=== PATIENT | male | born 1940 | race African-American/Black ===

== ENCOUNTER 2018-02-28 15:32 | Inpatient (IN) | payer OTHER, BC ==
[~2018-02-28] VITALS: Ht 175.3 cm; Wt 79.6 kg
[2018-02-28 17:05] LABS: BASOPHIL (%) 0.6 % (0-1); EOSINOPHIL (%) 0.8 % (0-5); HEMATOCRIT 44.2 % (38.0-50.0); HEMOGLOBIN 14.5 G/DL (12.5-16.6); IMMATURE GRANULOCYTE (%) 0.2 % (0.0-0.7); LYMPHOCYTE (%) 29.8 % (15-42); LYMPHOCYTE COUNT 1.5 K/uL (1.0-2.8); MCH 29.7 PG (29.0-34.0); MCHC 32.8 G/DL (30.0-36.0); MCV 90.4 FL (86-99); MONOCYTE (%) 12.6 % (3-12); MONOCYTE COUNT 0.6 K/uL (0-0.8); NEUTROPHIL COUNT 2.8 K/uL (1.8-6.4); PLATELET COUNT 235 K/uL (156-360); RBC DIS.WIDTH-CV 11.9 % (11.8-14.6); RBC DIS.WIDTH-SD 39.1 % (39-53); RED BLOOD COUNT 4.89 M/uL (4.00-5.50); WHITE BLOOD COUNT 4.9 K/uL (4.1-10.2)
[2018-02-28 17:16] LABS: CHLORIDE 107 mEq/L (99-109); POTASSIUM 4.1 mEq/L (3.7-5.4); SODIUM 137 mEq/L (136-147)
[2018-02-28 17:18] LABS: GLUCOSE 122 mg/dL (70-99)
[2018-02-28 17:22] LABS: CREATININE 1.8 mg/dL (0.6-1.3); GFR ESTIMATE (CALCULATED) 47 mL/min/ (58.99-99999)
[2018-02-28 17:23] LABS: UREA NITROGEN (BUN) 21 mg/dL (9-23)
[2018-02-28 17:24] LABS: CREATINE KINASE 83 IU/L (1-294); TOTAL CK 83 IU/L (1-294)
[2018-02-28 17:31] LABS: TROP-I INTERPRETATION NEGATIVE; TROPONIN-I < 0.01 ng/mL (0.0-0.30)
[2018-02-28 17:32] LABS: CK-MB 1.4 ng/mL (0.0-4.9); CKMB RELATIVE INDEX 1.7 (0.0-3.9)
[2018-02-28] MEDS ORDERED: AMLODIPINE BESY10 MG PO (19:11)
[2018-02-28] MEDS ORDERED: JANUVIA25 M1 PO (19:12)
[2018-02-28] MEDS ORDERED: ATORVASTATIN CA80 MG PO (19:12)
[2018-02-28 21:58] VITALS: BP 191/93
[2018-02-28 23:00] LABS: HDL CHOLESTEROL 33 MG/DL (Desirable>=40); LDL CHOLESTEROL 192 mg/dL (Desirable<100); NON-HDL CHOLESTEROL 218 mg/dL (Desirable<160); TOTAL CHOLESTEROL 251 mg/dL (Desirable<200); TRIGLYCERIDES 131 MG/DL (Normal: <150)
[2018-02-28 23:03] LABS: TROP-I INTERPRETATION NEGATIVE; TROPONIN-I < 0.01 ng/mL (0.0-0.30)
[2018-03-01 04:29] VITALS: BP 157/72
[2018-03-01 05:50] LABS: TROP-I INTERPRETATION NEGATIVE; TROPONIN-I < 0.01 ng/mL (0.0-0.30)
[2018-03-01 06:04] LABS: CHLORIDE 105 MEQ/L (99-109); CREATININE 1.5 MG/DL (0.6-1.3); GFR ESTIMATE (CALCULATED) 58 mL/min/ (58.99-99999); GLUCOSE 128 mg/dL (70-99); POTASSIUM 3.7 MEQ/L (3.7-5.4); SODIUM 140 MEQ/L (136-147); UREA NITROGEN (BUN) 19 mg/dL (9-23)
[2018-03-01 07:26] VITALS: BP 185/82
[2018-03-01 08:57] LABS: HEMOGLOBIN A1c (GLYCOHEMOGLOB) 7.3 % (Below 5.7)
[2018-03-01 11:07] VITALS: BP 170/76
[2018-03-01 14:48] VITALS: BP 181/91
[2018-03-01 15:42] VITALS: BP 157/81
[2018-03-01 20:18] VITALS: BP 172/89
[2018-03-02 00:01] VITALS: BP 163/79
[2018-03-02 04:18] VITALS: BP 174/82
[2018-03-02 08:25] VITALS: BP 131/75
[2018-03-02 11:48] VITALS: BP 137/72; BP 149/66
[2018-03-02 16:00] VITALS: BP 117/59
[2018-03-02] MEDS ORDERED: AMLODIPINE BESY10 MG PO (16:13)
[2018-03-02] MEDS ORDERED: JANUVIA25 M1 PO (16:13)
[2018-03-02] MEDS ORDERED: ASPIRIN EC325 MG PO (16:13)
[2018-03-02] MEDS ORDERED: ATORVASTATIN CA80 MG PO (16:13)
== END 2018-03-02 18:31 | disposition home or self-care (01) | DRG 65 ==
LOC: EME 15:32 → EDOF 20:38 → 4SOUTH 20:38 → ENRESERV 20:39 → 4SOUTH 21:47 → ENRESERV 03-02 08:35 → CANRESERV 03-02 09:14 → ENRESERV 03-02 09:14 → 4SOUTH 03-02 18:31
PROVIDERS: Hospitalist; Physician Assistant
DX: I63.131 Cerebral infarction due to embolism of right carotid artery (principal); R47.81 Slurred speech; T67.5XXA Heat exhaustion, unspecified, initial encounter; T67.0XXA Heatstroke and sunstroke, initial encounter; X30.XXXA Exposure to excessive natural heat, initial encounter; Z91.14 Patient's other noncompliance with medication regimen; R94.31 Abnormal electrocardiogram [ECG] [EKG]; I12.9 Hypertensive chronic kidney disease with stage 1 through stage 4 chronic kidney disease, or unspecified chronic kidney disease; I65.22 Occlusion and stenosis of left carotid artery; E11.22 Type 2 diabetes mellitus with diabetic chronic kidney disease; N18.9 Chronic kidney disease, unspecified; E04.2 Nontoxic multinodular goiter; E78.5 Hyperlipidemia, unspecified; E78.00 Pure hypercholesterolemia, unspecified; F17.200 Nicotine dependence, unspecified, uncomplicated
CPT/HCPCS: 70450; 70549; 70551; 71046; 80048; 80061; 81003; 82550 91; 82553; 82948; 83036; 84484; 85025; 93005; 93880; 99281; 99285; G0378; G8978 GP CJ; G8979 GP CH; G8987 GO CJ; G8988 CI; G8989 GO CI; J1644; J7030

== ENCOUNTER 2018-03-16 09:53 | Day surgery (SDC) | payer OTHER, BC ==
[~2018-03-16] VITALS: Ht 175.3 cm; Wt 79.8 kg
[~2018-03-16 09:53] MED LIST: AMLODIPINE BESY10 MG PO; ASPIRIN EC325 MG PO; ATORVASTATIN CA80 MG PO; JANUVIA25 M1 PO
== END 2018-03-16 18:25 | disposition home or self-care (01) ==
LOC: CATH 09:53
PROVIDERS: Internal Medicine Cardiovascular Disease
DX: I25.10 Atherosclerotic heart disease of native coronary artery without angina pectoris (principal); I25.82 Chronic total occlusion of coronary artery; I65.23 Occlusion and stenosis of bilateral carotid arteries; I10 Essential (primary) hypertension; E11.9 Type 2 diabetes mellitus without complications; E78.5 Hyperlipidemia, unspecified; Z86.73 Personal history of transient ischemic attack (TIA), and cerebral infarction without residual deficits; Z79.82 Long term (current) use of aspirin; Z79.84 Long term (current) use of oral hypoglycemic drugs
CPT/HCPCS: 82948; C1769; C1887; J1644; J2250; J3010; J7040